=== PATIENT | female | born 1975 | race Hispanic/Latino ===

== ENCOUNTER 2017-04-06 21:10 | Emergency (ER) | payer SELFPAY ==
[2017-04-06] MEDS ORDERED: Ondansetron ODT 4 MG TAB ONE ×2 (21:41→22:09)
[2017-04-06] MEDS ORDERED: Mag-Al Plus 1200 MG/1200 MG/120 MG/30 ML UDCUP ONE (21:41)
[2017-04-06] MEDS ORDERED: Lidocaine Viscous Sol 2% 15 ml UD Cup ONE (21:41)
[2017-04-06] MEDS ORDERED: Promethazine HCl 25 MG/ML VIAL ONE (22:41)
[2017-04-06] MEDS ORDERED: Pantoprazole 40 MG VIAL ONE (22:41)
[2017-04-06] MEDS ORDERED: Sodium Chloride 0.9% 1,000 ML ONE (22:41)
[2017-04-06 22:52] LABS: BHCG - Serum Negative (NEGATIVE); Pregs Control Bar Appear? YES (CONTROL BAR)
[2017-04-06 23:01] LABS: ALT (SGPT) 15 U/L (8-55); AST (SGOT) 12 U/L (5-34); Albumin 4.5 g/dL (3.5-5.0); Alkaline Phosphatase 74 U/L (40-150); Anion Gap 15 mmol/L (10-20); BUN (Urea Nitrogen) 12 mg/dL (7.0-18.7); Band 24 % (5-11); Bilirubin, Total 0.4 mg/dL (0.2-1.2); Calc. Creatinine Clearance 0 mL/min (70-130); Calcium 9.7 mg/dL (7.8-10.44); Carbon Dioxide 28 mmol/L (22-29); Chloride 101 mmol/L (98-107); Eosinophils 3 % (0-10); Estimated GFR-MDRD 83; Globulin 3.6 g/dL (2.4-3.5); Glucose 121 mg/dL (70-105); Hemoglobin 14.7 g/dL (12.0-16.0); Lipase 29 U/L (8-78); Lymphocytes 6 % (21-51); MDiff Complete? YES; Mean Corpuscular HGB CONC 33.4 g/dL (32.0-36.0); Mean Corpuscular Hemoglobin 29.1 pg (27.0-31.0); Mean Corpuscular Volume 87.2 fl (81.0-99.0); Mean Platelet Volume 6.1 fL (7.4-10.4); Monocytes 3 % (0-10); Neutrophil 64 % (42-75); PLT Morphology Comment Appears Adequate; Platelet Count 310 thou/uL (130-400); Potassium 3.9 mmol/L (3.5-5.1); Protein, Total 8.1 g/dL (6.0-8.3); RBC Distribution Width 10.8 % (11.5-14.5); RBC Morphology Normal; Red Blood Cell (RBC) Count 5.04 mill/uL (4.20-5.40); Sodium 140 mmol/L (136-145); White Blood Cell (WBC) Count 20.1 thou/uL (4.8-10.8)
== END 2017-04-06 23:59 | disposition home or self-care (01) ==
LOC: NAV ERS 21:10
DX: R11.2 Nausea with vomiting, unspecified (principal); R10.13 Epigastric pain
CPT/HCPCS: 80053; 82150; 83690; 84703; 85025; 96365; 96375; C9113; J2270; J2550; J7050; Q0162